=== PATIENT | female | born 1965 | race Caucasian/White ===

== ENCOUNTER 2016-11-26 20:42 | Emergency (ER) | payer OTHER, MEDICAID ==
[~2016-11-26] VITALS: Ht 175.3 cm; Wt 136.1 kg
[2016-11-26 20:46] VITALS: BP_SYST 155
[2016-11-26] MEDS ORDERED: LORazepam 1 MG TABLET PO ONE (21:15)
[2016-11-26] MEDS ORDERED: KETOROLAC TROMETHAMINE 60 MG/2 ML VIAL IM ONE (21:15)
[2016-11-26 21:43] LABS: BASOPHILS % (AUTO) 0.4 % (0.0-2.0); EOSINOPHILS # (AUTO) 0.1 K/uL (0.0-0.4); EOSINOPHILS % (AUTO) 1.6 % (0.0-4.0); HEMATOCRIT 39.9 % (36-48); HEMOGLOBIN 12.5 g/dL (12.0-16.0); MEAN CORPUSCULAR HEMOGLOBIN 28 pg (27-31); MEAN CORPUSCULAR HGB CONC 31 % (32-36); MEAN CORPUSCULAR VOLUME 89 fL (79.0-98.0); MONOCYTES # (AUTO) 0.6 K/uL (0.0-1.0); MONOCYTES % (AUTO) 6.4 % (1.7-9.3); NEUTROPHILS # (AUTO) 6.4 K/uL (1.8-7.7); NEUTROPHILS % (AUTO) 69.6 % (40.0-70.0); PLATELET COUNT (AUTO) 252 K/uL (130-430); RED BLOOD CELL COUNT(AUTO) 4.48 MIL/uL (4.2-6.2); RED CELL DISTRIBUTION WIDTH 12.9 % (9.0-15.0); WHITE BLOOD COUNT (AUTO) 9.1 K/uL (4.8-10.8)
[2016-11-26 21:54] LABS: CALCIUM 8.9 mg/dL (8.4-11.0); CREATININE 1.02 mg/dL (0.55-1.30); POTASSIUM 3.3 mmol/L (3.5-5.1)
[2016-11-26 21:59] LABS: ALBUMIN 3.2 g/dL (3.4-4.8); TOTAL BILIRUBIN 0.4 mg/dL (0.0-1.0)
[2016-11-26 23:05] VITALS: BP_SYST 134
== END 2016-11-26 23:05 | disposition home or self-care (01) ==
LOC: SED 20:42
DX: I83.893 Varicose veins of bilateral lower extremities with other complications (principal); L03.116 Cellulitis of left lower limb; F41.9 Anxiety disorder, unspecified; F20.9 Schizophrenia, unspecified
CPT/HCPCS: 36415; 73610; 80053; 83605; 85025; 85379; 87040; 93971; 96372; 99285; J1885

== ENCOUNTER 2017-01-03 05:30 | Emergency (ER) | payer OTHER, MEDICAID ==
[~2017-01-03] VITALS: Ht 167.6 cm; Wt 167.4 kg
--- NOTE | 2017-01-03 05:34 | NUR ---
Patient to ER bed 4 to gown for evaluation. Side rails up. Report given to Aye DIAZ.
[2017-01-03 05:35] VITALS: BP_SYST 153
--- NOTE | 2017-01-03 05:40 | NUR ---
Patient brought to ER by [facility] ambulance from home C/O bleeding varicose vein from left lower leg, anterior. No bleeding in ER, denies pain. Patient states that she was watching TV when felt the blood trickling on her left foot. 0.5cm opening on vericose vein. AAOx4, unlabored breathing, no signs of acute distress.
--- NOTE | 2017-01-03 05:41 | NUR ---
ER MD Ng at bedside evaluating the patient
--- NOTE | 2017-01-03 06:00 | NUR ---
Site to left anterior lower leg cleansed with NS. Site measures approximately 0.5cm opening. Gauze dressing applied.
[2017-01-03 06:12] VITALS: BP_SYST 126
--- NOTE | 2017-01-03 06:12 | NUR ---
Patient given written and verbal discharge instructions and verbalizes understanding. ER MD Ng discussed with patient the results and treatment provided. Patient in stable condition. ID arm band Patient educated on pain management and to follow up with PMD. Pain Scale 0/10. Opportunity for questions provided and answered.
== END 2017-01-03 06:12 | disposition home or self-care (01) ==
LOC: SED 05:30
DX: I83.892 Varicose veins of left lower extremity with other complications (principal); F20.9 Schizophrenia, unspecified; F41.9 Anxiety disorder, unspecified; E66.01 Morbid (severe) obesity due to excess calories; Z68.43 Body mass index [BMI] 50.0-59.9, adult
CPT/HCPCS: 99283